=== PATIENT | female | born 1935 | race Caucasian/White ===

== ENCOUNTER 2024-02-09 11:30 | Outpatient (CLI) | payer OTHER | END 2024-02-09 11:31 | disposition home or self-care (01) | LOC: SCSRAD 11:30 | PROVIDERS: ATTEND Family Medicine | DX: M54.50 Low back pain, unspecified (principal); M43.16 Spondylolisthesis, lumbar region; M43.17 Spondylolisthesis, lumbosacral region; S32.019D Unspecified fracture of first lumbar vertebra, subsequent encounter for fracture with routine healing; S32.029D Unspecified fracture of second lumbar vertebra, subsequent encounter for fracture with routine healing; Z98.890 Other specified postprocedural states; Z98.1 Arthrodesis status | CPT/HCPCS: 72120 ==